=== PATIENT | female | born 1945 | race Caucasian/White ===

== ENCOUNTER → 2024-04-27 | Outpatient (CLI) | payer OTHER, MEDICAID, SELFPAY ==
[2024-04-27 11:03] LABS: Collection Type, Urine Clean Catch
[2024-04-27 11:28] LABS: Basophils % (Auto) 1 % (0-2.5); Eosinophils # (Auto) 0.3 Thou/mm3 (0.0-0.5); Eosinophils % (Auto) 5 % (0-10); Hematocrit 45.4 % (36.0-46.0); Immature Granulocytes % (Auto) 0 % (0-0); Immature Granulocytes Auto 0.01 Thou/mm3 (0.00-0.00); Lymphocytes # (Auto) 1.8 Thou/mm3 (1.0-4.8); Lymphocytes % (Auto) 30 % (10-50); Mean Corpuscular HGB Conc 30.8 g/dl (31.0-37.0); Mean Corpuscular Hemoglobin 26.8 pg (25.0-35.0); Mean Corpuscular Volume 87 fL (80-100); Monocytes # (Auto) 0.5 Thou/mm3 (0.0-0.8); Monocytes % (Auto) 8 % (0-12); Neutrophils # (Auto) 3.5 Thou/mm3 (1.8-7.7); Neutrophils % (Auto) 57 % (37-80); Nucleated Red Blood Cell % 0 /100 WBC (0); Platelet Count 342 Thou/mm3 (140-440); RDW Standard Deviation 74.2 fL (36.4-46.3); Red Blood Count 5.22 Miln/mm3 (4.00-5.20); White Blood Count 6.1 Thou/mm3 (3.6-11.0)
[2024-04-27 11:36] LABS: Bilirubin,Urine Negative (Negative); Blood,Urine Negative (Negative); Clarity,Urine Clear (Clear/Hazy); Color,Urine Colorless (Lt Yel-Yel); Glucose, Urine Negative (Negative); Ketones,Urine Negative (Negative); Leukocyte Esterase,Urine Positive (Negative); Nitrite,Urine Negative (Negative); PH,Urine 6.5 (5.0-7.0); Protein,Urine Negative (Neg - Trace); RBC,Urine 3 /hpf (0-3); Specific Gravity,Urine 1.009 (1.001-1.035); Squamous Epithelial Cell,Urine 1 /hpf (0-5); Urobilinogen,Urine Negative mg/dL (0.0-1.0); WBC,Urine 29 /hpf (0-5)
[2024-04-27 11:38] LABS: Glucose Estimated Average 85 mg/dL (80-131); Hemoglobin A1C 4.6 % Hgb (4.8-6.0)
[2024-04-27 11:47] LABS: Alanine Aminotransferase 15 U/L (10-49); Albumin, Serum 4.5 gm/dL (3.4-4.8); Albumin/Globulin Ratio 1.5 (1.2-2.2); Alkaline Phosphatase 151 U/L (46-116); Anion Gap 5 (7-16); Aspartate Amino Transferase 19 U/L (0-34); BUN/Creatinine Ratio 20 Ratio (12-20); Bilirubin,Total 0.4 mg/dL (0.3-1.2); Blood Urea Nitrogen 14 mg/dL (9-23); Calcium 9.9 mg/dL (8.3-10.6); Calcium (Corrected) 9.9 mg/dL (8.5-10.1); Carbon Dioxide 29.9 mMol/L (20.0-31.0); Cardiac Risk Estimate 2.8 RATIO (3.7-5.6); Chloride 103 mMol/L (98-107); Cholesterol 160 mg/dL (132-200); Creatinine (Component) 0.7 mg/dL (0.6-1.3); Glucose 90 mg/dL (74-106); HDL Cholesterol 57 mg/dL (40-60); LDL Cholesterol,Calculated 85 mg/dL (0-130); Osmolality,Calculated 276 (275-295); Sodium 138 mMol/L (136-145); Thyroid Stimulating Hormone 3.21 uIU/mL (0.55-4.78); Total Protein 7.5 gm/dL (5.7-8.2); Triglycerides 90 mg/dL (30-150); Uric Acid 4.7 mg/dL (3.1-7.8); eGFR > 60 See Note
[2024-04-27 11:49] LABS: Folate 16.06 ng/mL (>5.38); Vitamin B12 423 pg/mL (211-911); Vitamin D 25 Hydroxy Total 81.9 ng/mL (7.3-40.2)
[2024-04-27 12:14] LABS: Ferritin 21 ng/mL (7.3-270.7); Iron 45 mcg/dL (50-170); Percent Iron Saturation 13 % (20-55); Total Iron Binding Capacity 324 mcg/dL (250-425); Unsaturated Iron Binding 279 (225-295)
== END | disposition home or self-care (01) ==
LOC: COPL 10:13
PROVIDERS: PCP Internal Medicine; Referring Provider Internal Medicine Hematology & Oncology; Visit Provider Internal Medicine Hematology & Oncology
DX: Z00.00 Encounter for general adult medical examination without abnormal findings (principal); D50.9 Iron deficiency anemia, unspecified
CPT/HCPCS: 36415; 80053; 80061; 81001; 82306; 82607; 82728; 82746; 83036; 83540; 83550; 84443; 84550; 85025

== ENCOUNTER 2024-05-13 09:59 | Outpatient (RCR) | payer OTHER, MEDICAID, SELFPAY | END 2024-05-22 23:59 | disposition home or self-care (01) | LOC: SCTC 09:59 | PROVIDERS: PCP Internal Medicine; Referring Provider Internal Medicine; Visit Provider Internal Medicine Hematology & Oncology | DX: D50.9 Iron deficiency anemia, unspecified (principal) | CPT/HCPCS: 96365; 96366; 96375; J2916; J2919; J3490 ==

== ENCOUNTER 2024-06-21 12:58 | Outpatient (RCR) | payer OTHER, MEDICAID, SELFPAY ==
[2024-06-21 14:25] LABS: Basophils % (Auto) 1 % (0-2.5); Eosinophils # (Auto) 0.2 Thou/mm3 (0.0-0.5); Eosinophils % (Auto) 3 % (0-10); Hematocrit 45.2 % (36.0-46.0); Hemoglobin 14.7 g/dL (12.0-16.0); Immature Granulocytes % (Auto) 0 % (0-0); Immature Granulocytes Auto 0.01 Thou/mm3 (0.00-0.00); Lymphocytes # (Auto) 1.8 Thou/mm3 (1.0-4.8); Lymphocytes % (Auto) 28 % (10-50); Mean Corpuscular HGB Conc 32.5 g/dl (31.0-37.0); Mean Corpuscular Hemoglobin 30.2 pg (25.0-35.0); Mean Corpuscular Volume 93 fL (80-100); Monocytes # (Auto) 0.5 Thou/mm3 (0.0-0.8); Monocytes % (Auto) 7 % (0-12); Neutrophils # (Auto) 3.8 Thou/mm3 (1.8-7.7); Neutrophils % (Auto) 60 % (37-80); Nucleated Red Blood Cell % 0 /100 WBC (0); Platelet Count 287 Thou/mm3 (140-440); RDW Standard Deviation 54.2 fL (36.4-46.3); Red Blood Count 4.87 Miln/mm3 (4.00-5.20); White Blood Count 6.3 Thou/mm3 (3.6-11.0)
[2024-06-21 14:48] LABS: Alanine Aminotransferase 29 U/L (10-49); Albumin, Serum 4.4 gm/dL (3.4-4.8); Albumin/Globulin Ratio 1.5 (1.2-2.2); Alkaline Phosphatase 139 U/L (46-116); Anion Gap 7 (7-16); Aspartate Amino Transferase 31 U/L (0-34); BUN/Creatinine Ratio 20 Ratio (12-20); Bilirubin,Total 0.3 mg/dL (0.3-1.2); Blood Urea Nitrogen 14 mg/dL (9-23); Calcium 10.4 mg/dL (8.3-10.6); Calcium (Corrected) 10.4 mg/dL (8.5-10.1); Carbon Dioxide 27.7 mMol/L (20.0-31.0); Chloride 104 mMol/L (98-107); Creatinine (Component) 0.7 mg/dL (0.6-1.3); Glucose 94 mg/dL (74-106); Osmolality,Calculated 278 (275-295); Sodium 139 mMol/L (136-145); Total Protein 7.4 gm/dL (5.7-8.2); eGFR > 60 See Note
[2024-06-21 15:32] LABS: Folate 18.43 ng/mL (>5.38); Vitamin B12 373 pg/mL (211-911)
[2024-06-21 16:03] LABS: Ferritin 181 ng/mL (7.3-270.7); Total Iron Binding Capacity 286 mcg/dL (250-425)
[2024-06-21 16:14] LABS: Iron 71 mcg/dL (50-170); Percent Iron Saturation 24 % (20-55); Unsaturated Iron Binding 215 (225-295)
--- NOTE | 2024-07-04 18:51 | CTCFLWUP_ITS ---
Patient: DELISA STAUFFER : 1945 Page 2 of 3 FOLLOW UP NOTE DATE OF SERVICE: 06/10/2024 NAME: DELISA STAUFFER ACCOUNT: [id number] : 1945 AGE: 78 INTERVAL HISTORY: ONCOLOGY HISTORY: DIAGNOSIS: Iron deficiency anemia, unspecified [ICD10] D50.9 DATE OF DIAGNOSIS: STAGE/TNM: TREATMENT HISTORY: Care?Plan Start?Date Cycle Day Intent FERAheme 04/12/2024 1 30 Maintenance FERRlecit?she 04/29/2024 1 7 Palliative HISTORY OF PRESENT ILLNESS: Patient is 78-year-old woman. She was found to be severely iron deficient and had EGD and colonoscop y. As per her there was no bleeding source found but patient was found to have esophagitis and gastr itis. She was given intravenous iron in the hospital. OTHER MEDICAL HISTORY/CONDITIONS: ARELI HTN CAD TIA's poss stroke Osteoarthiritis Appenedectomy - 50yrs ago Cholecystectomy - 20yrs ago Heart procedure - 20yrs ago Lithotripsy x 2 - 20 yrs ago ?Clone Other Med Hx? 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 ferrous sulfate-vitamin C - 65-150 mg 1 Capsule Twice a Day 2. Miralax - 17 gram/dose 1 Daily 3. Tylenol Arthritis - 650 mg 1 tab As directed 4. Zofran (as hydrochloride) - 2 mg/mL 4 mg Every 8 Hours?[facility] Meds? Medications Last Reconciled by Yadi Linares MA on 06/28/2024 ALLERGIES: No Known Drug Allergies REVIEW OF SYSTEMS: A complete 14-point review of systems was performed and is negative except as noted in interval histo ry. PHYSICAL EXAMINATION: VITAL SIGNS: GENERAL APPEARANCE: Appears well, in no apparent distress, appropriately interactive. HEENT: Normocephalic, no temporal wasting, normal conjunctiva, no scleral icterus, normal hearing, li ps without lesions, neck normal range of motion. CARDIOVASCULAR: Not assessed. PULMONARY: Normal respiratory effort, no respiratory distress or use of accessory muscles, speaking i n full sentences, no tachypnea. EXTREMITIES: No pedal edema or cyanosis. SKIN: Normal skin appearance. NEUROLOGIC: Alert and oriented x4. PSHYCHIATRIC: Appropriate affect, mood normal, behavior normal, intact thought and speech. LABORATORY DATA: I have personally reviewed and interpreted each of the patient?s relevant lab tests, abnormal finding s are below: Date 04/27/24 ??WHITE?BLOOD?COUNT?(Thou/mm3) 6.1 ??RED?BLOOD?COUNT?(Miln/mm3) 5.22?H ??HEMOGLOBIN?(gm/dl) 14.0 ??HEMATOCRIT?(%) 45.4 ??PLATELET?COUNT?(Thou/mm3) 342 ??NEUTROPHILS?%,?AUTO?(%) 57 ??LYMPH?%,?AUTO?(%) 30 ??NEUTROPHILS,?AUTO?(Thou/mm3) 3.5 ASSESSMENT/PLAN: Iron deficiency Endoscopy was negative for bleeding source Patient can still have bleeding even when at the time of endoscopy no bleeding site was noted Patient may also have underlying malabsorption No history of gastric bypass Will start on IV iron after repeating the labs Her colonoscopy in November 22 was normal February 2024 EGD do not reveal any bleeding site December 28, 2023 CT abdomen was normal RETURN TO CLINIC: BILLING AND COMPLIANCE: I reviewed external records from providers outside my specialty as summarized above. I spent a total of 50 minutes on this patient?s care on the day of their visit excluding time spent related to any bi lled procedures. This time includes time spent with the patient as well as time spent documenting in the medical record, reviewing patients records and tests, obtaining history, placing orders, communi cating with other healthcare professionals, counseling the patient, family or caregiver, and/or care coordination for the diagnoses above. Electronically Signed by: Brandon Figueredo MD T: 6:49 PM CC: PCP: Tyler Cornejo Referring: Tyler Cornejo This document was completed utilizing speech recognition software. Grammatical errors, random word in sertions, pronoun errors, and incomplete sentences are an occasional consequence of this system due t o software limitations, ambient noise, and hardware issues. Any formal questions or concerns about th e content, text or information contained within the body of this dictation should be directly address ed to the provider for clarification.
== END 2024-06-22 23:59 | disposition home or self-care (01) ==
LOC: SCTC 12:58
PROVIDERS: PCP Internal Medicine; Referring Provider Internal Medicine; Visit Provider Internal Medicine Hematology & Oncology
DX: D50.9 Iron deficiency anemia, unspecified (principal)
CPT/HCPCS: 80053; 82607; 82728; 82746; 83540; 83550; 85025; 96365; 96375; J2916; J2919; J3490

== ENCOUNTER 2024-06-28 08:14 | Outpatient (RCR) | payer MEDICARE, MEDICAID, SELFPAY | END 2024-07-23 23:59 | disposition home or self-care (01) | LOC: SCTC 08:14 | PROVIDERS: PCP Internal Medicine; Referring Provider Internal Medicine; Visit Provider Internal Medicine Hematology & Oncology | DX: D50.9 Iron deficiency anemia, unspecified (principal) | CPT/HCPCS: 99212; G0463 ==

== ENCOUNTER 2024-08-26 11:19 | Outpatient (RCR) | payer MEDICARE, MEDICAID, SELFPAY | END 2024-09-20 23:59 | disposition home or self-care (01) | LOC: SCTC 11:19 | PROVIDERS: PCP Family Medicine; Referring Provider Nurse Practitioner Family; Visit Provider Nurse Practitioner Family | DX: Z09 Encounter for follow-up examination after completed treatment for conditions other than malignant neoplasm (principal); Z86.2 Personal history of diseases of the blood and blood-forming organs and certain disorders involving the immune mechanism | CPT/HCPCS: 99212; G0463 ==

== ENCOUNTER → 2024-08-26 | Outpatient (CLI) | payer MEDICARE, MEDICAID, SELFPAY ==
[2024-08-26 13:18] LABS: Basophils # (Auto) 0.1 Thou/mm3 (0.0-0.2); Basophils % (Auto) 1 % (0-2.5); Eosinophils # (Auto) 0.4 Thou/mm3 (0.0-0.5); Eosinophils % (Auto) 6 % (0-10); Hemoglobin 14.4 g/dL (12.0-16.0); Immature Granulocytes % (Auto) 0 % (0-0); Immature Granulocytes Auto 0.01 Thou/mm3 (0.00-0.00); Immature Reticulocyte Fraction 8.2 % (3.0-15.9); Lymphocytes % (Auto) 26 % (10-50); Mean Corpuscular HGB Conc 33.5 g/dl (31.0-37.0); Mean Corpuscular Hemoglobin 32.1 pg (25.0-35.0); Mean Corpuscular Volume 96 fL (80-100); Monocytes # (Auto) 0.6 Thou/mm3 (0.0-0.8); Monocytes % (Auto) 8 % (0-12); Neutrophils # (Auto) 4.6 Thou/mm3 (1.8-7.7); Neutrophils % (Auto) 60 % (37-80); Nucleated Red Blood Cell % 0 /100 WBC (0); Platelet Count 280 Thou/mm3 (140-440); RDW Standard Deviation 48.2 fL (36.4-46.3); Red Blood Count 4.48 Miln/mm3 (4.00-5.20); Reticulocyte Absolute Auto 90.9 Biln/L (25.0-75.0); Reticulocyte Hgb Content 34.5 pg (28.0-35.0); White Blood Count 7.7 Thou/mm3 (3.6-11.0)
[2024-08-26 13:30] LABS: Alanine Aminotransferase 17 U/L (10-49); Albumin, Serum 4.2 gm/dL (3.4-4.8); Albumin/Globulin Ratio 1.4 (1.2-2.2); Alkaline Phosphatase 133 U/L (46-116); Anion Gap 7 (7-16); Aspartate Amino Transferase 26 U/L (0-34); BUN/Creatinine Ratio 20 Ratio (12-20); Bilirubin,Total 0.4 mg/dL (0.3-1.2); Blood Urea Nitrogen 14 mg/dL (9-23); Calcium 9.3 mg/dL (8.3-10.6); Calcium (Corrected) 9.3 mg/dL (8.5-10.1); Carbon Dioxide 28.2 mMol/L (20.0-31.0); Chloride 103 mMol/L (98-107); Creatinine (Component) 0.7 mg/dL (0.6-1.3); Globulin 2.9 gm/dL (2.3-3.5); Glucose 89 mg/dL (74-106); Osmolality,Calculated 275 (275-295); Potassium 4.6 mMol/L (3.4-5.1); Sodium 138 mMol/L (136-145); Total Protein 7.1 gm/dL (5.7-8.2); eGFR > 60 See Note
[2024-08-26 13:39] LABS: Folate > 24.00 ng/mL (>5.38); Vitamin B12 366 pg/mL (211-911)
[2024-08-26 13:49] LABS: Ferritin 145 ng/mL (7.3-270.7); Iron 77 mcg/dL (50-170)
== END | disposition home or self-care (01) ==
PROVIDERS: PCP Nurse Practitioner Family; Referring Provider Nurse Practitioner Family; Visit Provider Nurse Practitioner Family
DX: D50.9 Iron deficiency anemia, unspecified (principal)
CPT/HCPCS: 36415; 80053; 82607; 82728; 82746; 83540; 85025; 85046

== ENCOUNTER → 2024-12-06 | Outpatient (CLI) | payer MEDICARE, MEDICAID, SELFPAY ==
[2024-12-06 13:53] LABS: Basophils # (Auto) 0.1 Thou/mm3 (0.0-0.2); Basophils % (Auto) 1 % (0-2.5); Eosinophils # (Auto) 0.2 Thou/mm3 (0.0-0.5); Eosinophils % (Auto) 4 % (0-10); Hematocrit 42.3 % (36.0-46.0); Hemoglobin 14.1 g/dL (12.0-16.0); Immature Granulocytes % (Auto) 0 % (0-0); Immature Granulocytes Auto 0.01 Thou/mm3 (0.00-0.00); Immature Reticulocyte Fraction 9.8 % (3.0-15.9); Lymphocytes # (Auto) 1.4 Thou/mm3 (1.0-4.8); Lymphocytes % (Auto) 25 % (10-50); Mean Corpuscular HGB Conc 33.3 g/dl (31.0-37.0); Mean Corpuscular Hemoglobin 32.1 pg (25.0-35.0); Mean Corpuscular Volume 96 fL (80-100); Monocytes # (Auto) 0.5 Thou/mm3 (0.0-0.8); Monocytes % (Auto) 9 % (0-12); Neutrophils # (Auto) 3.5 Thou/mm3 (1.8-7.7); Neutrophils % (Auto) 61 % (37-80); Nucleated Red Blood Cell % 0 /100 WBC (0); Platelet Count 275 Thou/mm3 (140-440); RDW Standard Deviation 46.9 fL (36.4-46.3); Red Blood Count 4.39 Miln/mm3 (4.00-5.20); Reticulocyte % (Auto) 1.9 % (0.5-1.5); Reticulocyte Absolute Auto 83.4 Biln/L (25.0-75.0); White Blood Count 5.8 Thou/mm3 (3.6-11.0)
[2024-12-06 14:13] LABS: Alanine Aminotransferase 20 U/L (10-49); Albumin, Serum 4.3 gm/dL (3.4-4.8); Albumin/Globulin Ratio 1.6 (1.2-2.2); Alkaline Phosphatase 119 U/L (46-116); Anion Gap 12 (7-16); Aspartate Amino Transferase 30 U/L (0-34); BUN/Creatinine Ratio 16 Ratio (12-20); Bilirubin,Total 0.6 mg/dL (0.3-1.2); Blood Urea Nitrogen 11 mg/dL (9-23); Calcium 9.3 mg/dL (8.3-10.6); Calcium (Corrected) 9.3 mg/dL (8.5-10.1); Carbon Dioxide 26.2 mMol/L (20.0-31.0); Chloride 105 mMol/L (98-107); Creatinine (Component) 0.7 mg/dL (0.6-1.3); Globulin 2.7 gm/dL (2.3-3.5); Glucose 87 mg/dL (74-106); Osmolality,Calculated 283 (275-295); Potassium 4.3 mMol/L (3.4-5.1); Sodium 143 mMol/L (136-145); eGFR > 60 See Note
[2024-12-06 14:19] LABS: Ferritin 107 ng/mL (7.3-270.7); Iron 63 mcg/dL (50-170); Percent Iron Saturation 23 % (20-55); Total Iron Binding Capacity 273 mcg/dL (250-425); Unsaturated Iron Binding 210 (225-295)
[2024-12-06 14:32] LABS: Folate > 24.00 ng/mL (>5.38); Vitamin B12 472 pg/mL (211-911)
== END | disposition home or self-care (01) ==
LOC: COPL 11:39 → SCTO 11:47
PROVIDERS: PCP Family Medicine; Referring Provider Nurse Practitioner Family; Visit Provider Nurse Practitioner Family
DX: D50.9 Iron deficiency anemia, unspecified (principal)
CPT/HCPCS: 36415; 80053; 82607; 82728; 82746; 83540; 83550; 85025; 85046

== ENCOUNTER 2024-12-08 15:13 | Outpatient (RCR) | payer MEDICARE, MEDICAID, SELFPAY | END 2024-12-20 23:59 | disposition home or self-care (01) | LOC: SCTC 15:13 | PROVIDERS: PCP Family Medicine; Referring Provider Family Medicine; Visit Provider Nurse Practitioner Family | DX: D50.9 Iron deficiency anemia, unspecified (principal) | CPT/HCPCS: 99212; G0463 ==

== ENCOUNTER → 2025-03-10 | Outpatient (CLI) | payer MEDICARE, MEDICAID, SELFPAY ==
[2025-03-10 14:11] LABS: Basophils # (Auto) 0.1 Thou/mm3 (0.0-0.2); Basophils % (Auto) 1 % (0-2.5); Eosinophils # (Auto) 0.4 Thou/mm3 (0.0-0.5); Eosinophils % (Auto) 4 % (0-10); Hematocrit 44.6 % (36.0-46.0); Hemoglobin 14.4 g/dL (12.0-16.0); Immature Granulocytes Auto 0.02 Thou/mm3 (0.00-0.00); Immature Reticulocyte Fraction 9.1 % (3.0-15.9); Lymphocytes # (Auto) 2.4 Thou/mm3 (1.0-4.8); Lymphocytes % (Auto) 30 % (10-50); Mean Corpuscular HGB Conc 32.3 g/dl (31.0-37.0); Mean Corpuscular Hemoglobin 31.3 pg (25.0-35.0); Mean Corpuscular Volume 97 fL (80-100); Monocytes # (Auto) 0.6 Thou/mm3 (0.0-0.8); Monocytes % (Auto) 8 % (0-12); Neutrophils # (Auto) 4.5 Thou/mm3 (1.8-7.7); Neutrophils % (Auto) 57 % (37-80); Nucleated Red Blood Cell # 0.00 Thou/mm3 (0.00-0.00); Nucleated Red Blood Cell % 0 /100 WBC (0); Platelet Count 287 Thou/mm3 (140-440); RDW Standard Deviation 47.6 fL (36.4-46.3); Red Blood Count 4.60 Miln/mm3 (4.00-5.20); Reticulocyte % (Auto) 2.1 % (0.5-1.5); Reticulocyte Absolute Auto 96.1 Biln/L (25.0-75.0); Reticulocyte Hgb Content 36.0 pg (28.0-35.0); White Blood Count 7.9 Thou/mm3 (3.6-11.0)
[2025-03-10 14:25] LABS: Alanine Aminotransferase 18 U/L (10-49); Albumin, Serum 4.3 gm/dL (3.4-4.8); Albumin/Globulin Ratio 1.5 (1.2-2.2); Alkaline Phosphatase 128 U/L (46-116); Anion Gap 9 (7-16); Aspartate Amino Transferase 27 U/L (0-34); BUN/Creatinine Ratio 17 Ratio (12-20); Bilirubin,Total 0.5 mg/dL (0.3-1.2); Blood Urea Nitrogen 12 mg/dL (9-23); Calcium 9.9 mg/dL (8.3-10.6); Calcium (Corrected) 9.9 mg/dL (8.5-10.1); Carbon Dioxide 30.0 mMol/L (20.0-31.0); Chloride 104 mMol/L (98-107); Creatinine (Component) 0.7 mg/dL (0.6-1.3); Globulin 2.9 gm/dL (2.3-3.5); Glucose 94 mg/dL (74-106); Osmolality,Calculated 284 (275-295); Potassium 4.2 mMol/L (3.4-5.1); Sodium 143 mMol/L (136-145); Total Protein 7.2 gm/dL (5.7-8.2); eGFR > 60 See Note
[2025-03-10 14:27] LABS: Ferritin 98 ng/mL (7.3-270.7); Iron 60 mcg/dL (50-170); Percent Iron Saturation 22 % (20-55); Total Iron Binding Capacity 263 mcg/dL (250-425); Unsaturated Iron Binding 203 (225-295)
[2025-03-10 14:28] LABS: Folate 16.70 ng/mL (>5.38); Vitamin B12 460 pg/mL (211-911)
== END | disposition home or self-care (01) ==
LOC: SCTO 13:25
PROVIDERS: PCP Family Medicine; Referring Provider Nurse Practitioner Family; Visit Provider Nurse Practitioner Family
DX: D50.9 Iron deficiency anemia, unspecified (principal)
CPT/HCPCS: 36415; 80053; 82607; 82728; 82746; 83540; 83550; 85025; 85046

== ENCOUNTER 2025-03-15 13:10 | Outpatient (RCR) | payer MEDICARE, MEDICAID, SELFPAY | END 2025-03-22 23:59 | disposition home or self-care (01) | LOC: SCTC 13:10 | PROVIDERS: PCP Family Medicine; Referring Provider Family Medicine; Visit Provider Nurse Practitioner Family | DX: Z09 Encounter for follow-up examination after completed treatment for conditions other than malignant neoplasm (principal); Z86.2 Personal history of diseases of the blood and blood-forming organs and certain disorders involving the immune mechanism | CPT/HCPCS: 99212; G0463 ==